=== PATIENT | female | born 1990 | race Caucasian/White ===

== ENCOUNTER 2017-12-31 10:06 | Emergency (ER) | payer MEDICAID ==
[~2017-12-31] VITALS: Ht 165.1 cm; Wt 84.5 kg
[~2017-12-31 10:06] MED LIST: AUGMENTIN 875-11 TAB PO; HYDROCODON-ACE1 EAC7 PO; IBUPROFEN600 MG PO; LEVAQUIN500 MG PO; PRENATAL COMPLE1 TAB PO
[2017-12-31 10:20] VITALS: Ht 165.1 cm; Wt 84.5 kg
[2017-12-31 11:42] LABS: BASOPHILS 0.2 % (0-2); EOSINOPHILS 2.1 % (0-7); HEMATOCRIT 40.6 % (36.0-48.0); HEMOGLOBIN 13.7 g/dL (12-16); IMMATURE GRANULOCYTES 0.1 % (0-5); MCH 31.7 pg (26.0-34.0); MCHC 33.7 g/dL (31.0-37.0); MEAN PLATELET VOLUME 10.4 fL (7.4-10.4); NEUTROPHILS 66.6 % (40-80); RBC 4.32 10x6/uL (4.00-5.40); RDW 14.2 % (11.5-14.5); WBC 8.7 10x3/uL (4.8-10.8)
[2017-12-31 11:47] LABS: HCG SERUM NEGATIVE (NEGATIVE)
[2017-12-31 11:52] LABS: ALBUMIN 3.5 g/dL (3.4-5.0); ALKALINE PHOSPHATASE 70 U/L (46-116); ALT (SGPT) 24 U/L (10-68); BILIRUBIN - TOTAL 0.58 mg/dL (0.2-1.3); CALC OSMOLALITY 276 mosm/kg (275-300); CARBON DIOXIDE 28.9 mmol/L (21.0-32.0); CHLORIDE - SERUM 103 mmol/L (98-107); CREATININE - SERUM 0.7 mg/dL (0.6-1.3); GLUCOSE 106 mg/dL (74-106); POTASSIUM - SERUM 4.5 mmol/L (3.5-5.1); PROTEIN - SERUM 7.8 g/dL (6.4-8.2); SODIUM 139 mmol/L (136-145); UREA NITROGEN 11 mg/dL (7-18); eGFR NON AFRICAN AMERICAN > 90 mL/min (90-120)
[2017-12-31 11:53] LABS: PLATELET COUNT 294 10x3/uL (130-400)
[2017-12-31 12:04] LABS: THYROID STIMULATING HORMONE 1.92 uIU/mL (0.36-3.74)
[2017-12-31 13:36] LABS: UDS - AMPHET POSITIVE QUAL (NEGATIVE); UDS - BARB NEGATIVE QUAL (NEGATIVE); UDS - BENZO NEGATIVE QUAL (NEGATIVE); UDS - COCAINE NEGATIVE QUAL (NEGATIVE); UDS - OPIATE NEGATIVE QUAL (NEGATIVE); UDS - PCP NEGATIVE QUAL (NEGATIVE); UDS - THC POSITIVE QUAL (NEGATIVE)
[2017-12-31 16:51] VITALS: BP 104/69
== END 2017-12-31 16:50 | disposition home or self-care (01) ==
LOC: D.ER 10:06
PROVIDERS: Family Medicine
DX: F15.10 Other stimulant abuse, uncomplicated (principal); I48.91 Unspecified atrial fibrillation; R07.0 Pain in throat; R10.13 Epigastric pain; R11.0 Nausea; F17.200 Nicotine dependence, unspecified, uncomplicated

== ENCOUNTER 2018-03-26 01:48 | Emergency (ER) | payer MEDICAID ==
[~2018-03-26] VITALS: Ht 165.1 cm; Wt 81.6 kg
[2018-03-26 02:37] VITALS: Ht 165.1 cm; Wt 81.6 kg
[2018-03-26 03:49] LABS: BASOPHILS 0.3 % (0-2); EOSINOPHILS 2.5 % (0-7); HEMATOCRIT 38.9 % (36.0-48.0); IMMATURE GRANULOCYTES 0.1 % (0-5); LYMPHOCYTES 36.3 % (15-50); MCH 31.5 pg (26.0-34.0); MCHC 33.4 g/dL (31.0-37.0); MCV 94.2 fL (80.0-100.0); MEAN PLATELET VOLUME 10.2 fL (7.4-10.4); MONOCYTES 6.3 % (2-11); NEUTROPHILS 54.5 % (40-80); RBC 4.13 10x6/uL (4.00-5.40); RDW 13.7 % (11.5-14.5); WBC 6.8 10x3/uL (4.8-10.8)
[2018-03-26 03:57] LABS: PLATELET COUNT 199 10x3/uL (130-400)
[2018-03-26 04:03] LABS: ALBUMIN 3.3 g/dL (3.4-5.0); ALKALINE PHOSPHATASE 75 U/L (46-116); ALT (SGPT) 20 U/L (10-68); BILIRUBIN - TOTAL 0.29 mg/dL (0.2-1.3); CALC OSMOLALITY 277 mosm/kg (275-300); CALCIUM 8.4 mg/dL (8.5-10.1); CARBON DIOXIDE 27.9 mmol/L (21.0-32.0); CHLORIDE - SERUM 104 mmol/L (98-107); CREATININE - SERUM 0.9 mg/dL (0.6-1.3); GLUCOSE 128 mg/dL (74-106); POTASSIUM - SERUM 3.9 mmol/L (3.5-5.1); PROTEIN - SERUM 7.6 g/dL (6.4-8.2); SODIUM 138 mmol/L (136-145); UREA NITROGEN 12 mg/dL (7-18); eGFR NON AFRICAN AMERICAN 79 mL/min (90-120)
[2018-03-26] MEDS ORDERED: BACTROBAN CREAM15 GM TOPICAL (04:28)
[2018-03-26] MEDS ORDERED: BACTRIM DS TABL1 TAB PO (04:28)
[2018-03-26 04:49] VITALS: BP 122/78
== END 2018-03-26 04:50 | disposition home or self-care (01) ==
LOC: D.ER 01:48
PROVIDERS: Family Medicine
DX: L01.00 Impetigo, unspecified (principal); Z22.322 Carrier or suspected carrier of Methicillin resistant Staphylococcus aureus; F17.200 Nicotine dependence, unspecified, uncomplicated

== ENCOUNTER 2020-11-16 11:48 | Inpatient (IN) | payer MEDICAID ==
[~2020-11-16] VITALS: Ht 165.1 cm; Wt 98.0 kg
[~2020-11-16 11:48] MED LIST changes: +BACTRIM DS TABL1 TAB PO; +BACTROBAN CREAM15 GM TOPICAL
[2020-11-16 12:48] LABS: BASOPHILS 0.3 % (0-2); EOSINOPHILS 2.9 % (0-7); IMMATURE GRANULOCYTES 0.3 % (0-5); LYMPHOCYTE ABS# 1.48 10x3/uL (1.18-3.74); LYMPHOCYTES 25.1 % (15-50); MCH 30.4 pg (26.0-34.0); MCHC 33.3 g/dL (31.0-37.0); MCV 91.1 fL (80.0-100.0); MEAN PLATELET VOLUME 10.4 fL (7.4-10.4); MONOCYTES 7.3 % (2-11); NEUTROPHIL ABS# 3.77 10x3/uL (1.56-6.13); NEUTROPHILS 64.1 % (40-80); PLATELET COUNT 315 10x3/uL (130-400); RBC 4.28 10x6/uL (4.00-5.40); RDW 13.6 % (11.5-14.5); WBC 5.9 10x3/uL (4.8-10.8)
[2020-11-16 12:59] VITALS: BP 138/88
[2020-11-16 13:00] LABS: CALC OSMOLALITY 270 mosm/kg (275-300); CALCIUM 9.2 mg/dL (8.5-10.1); CARBON DIOXIDE 27.6 mmol/L (21.0-32.0); CHLORIDE - SERUM 99 mmol/L (98-107); CREATININE - SERUM 0.7 mg/dL (0.6-1.3); GLUCOSE 117 mg/dL (74-106); POTASSIUM - SERUM 3.9 mmol/L (3.5-5.1); SODIUM 136 mmol/L (136-145); UREA NITROGEN 7 mg/dL (7-18); eGFR NON AFRICAN AMERICAN > 90 mL/min (90-120)
[2020-11-16 13:08] LABS: ALBUMIN 2.9 g/dL (3.4-5.0); ALKALINE PHOSPHATASE 395 U/L (30-120); ALT (SGPT) 187 U/L (10-68); AMYLASE - SERUM 50 U/L (25-115); BILIRUBIN - TOTAL 0.63 mg/dL (0.2-1.3); LIPASE 50 U/L (73-393); PROTEIN - SERUM 8.5 g/dL (6.4-8.2)
[2020-11-16 13:11] LABS: TROPONIN-I < 0.017 ng/mL (0.000-0.060)
[2020-11-16 13:50] LABS: BILIRUBIN NEGATIVE (NEGATIVE); KETONE NEGATIVE (NEGATIVE); NITRITE NEGATIVE (NEGATIVE); UROBILINOGEN NORMAL mg/dL (< 2)
[2020-11-16 13:54] LABS: WHITE CELLS - URINE 0-5 HPF (0-4)
[2020-11-16 13:55] LABS: AMORPHOUS SEDIMENT <1+ LPF (NONE SEEN); BACTERIA FEW HPF (NONE SEEN); SQUAMOUS EPITHELIAL 0-5 HPF (0-4)
[2020-11-16 13:57] LABS: HCG URINE NEGATIVE (NEGATIVE)
[2020-11-16 15:58] LABS: APTT 43.5 SECONDS (22.8-39.4); INR 1.09 (0.85-1.17); PROTIME 13.1 SECONDS (11.6-15.0)
--- NOTE | 2020-11-16 16:05 | NUR ---
ACTICIN 5% CREAM APPLIED TO AREAS OF RASH ON ARMS, TRUNK, BACK, AND THIGHS. REFUSED APPLICATION TO AREAS WITH NO RASH. C/O RUQ ABD PAIN 02/01.
--- NOTE | 2020-11-16 17:00 | NUR ---
CLEAR LIQUIDS GIVEN. STATES PAIN AT 3/10 NOW. NO NAUSEA.
--- NOTE | 2020-11-16 18:07 | NUR ---
ARRIVES TO UNIT PER STRETCHER
[2020-11-16 18:17] VITALS: BP 139/77; BMI 36.0
--- NOTE | 2020-11-16 19:00 | NUR ---
SPOKE WITH DR CRAVEN ABOUT PT REQUEST FOR ITCH MEDICATION AND TORADOL FOR PAIN, UPDATED DR ON PT SAYING THAT SHE WAS DX WITH SCABIES, HE HAD NO FURTHER ORDERS
[2020-11-16 20:21] VITALS: BP 136/81
--- NOTE | 2020-11-16 23:13 | NUR ---
I have reviewed this patient and I concur with the Shift Assessment completed by the Licensed Practical Nurse today this shift.
[2020-11-17 04:30] VITALS: BP 138/76
--- NOTE | 2020-11-17 07:50 | NUR ---
RESTING IN BED, NO DISTRESS NOTED, REMAINS IN ISOLATION, CONT TO MONITOR ABD PAIN AND NAUSEA
[2020-11-17 09:34] VITALS: BP 138/90
--- NOTE | 2020-11-17 10:08 | NUR ---
DR VALDES CKED RASH TO PT, WILL ORDER MEDS
[2020-11-17 13:37] VITALS: BP 125/64
[2020-11-17 17:41] VITALS: BP 114/74
[2020-11-17 20:00] VITALS: BP 124/87
[2020-11-18] VITALS (9 sets, daily range): BP systolic 91–142; BP diastolic 59–85; Ht 165.1 cm; Wt 98.0 kg
--- NOTE | 2020-11-18 05:32 | NUR ---
I have reviewed this patient and I concur with the Shift Assessment completed by the Licensed Practical Nurse today this shift.
[2020-11-18 14:35] LABS: BASOPHILS 0.1 % (0-2); EOSINOPHILS 0.1 % (0-7); HEMATOCRIT 35.7 % (36.0-48.0); HEMOGLOBIN 11.7 g/dL (12-16); IMMATURE GRANULOCYTES 0.3 % (0-5); LYMPHOCYTE ABS# 0.82 10x3/uL (1.18-3.74); LYMPHOCYTES 10.4 % (15-50); MCH 30.2 pg (26.0-34.0); MCHC 32.8 g/dL (31.0-37.0); MCV 92.2 fL (80.0-100.0); MEAN PLATELET VOLUME 10.2 fL (7.4-10.4); MONOCYTES 4.6 % (2-11); NEUTROPHIL ABS# 6.65 10x3/uL (1.56-6.13); NEUTROPHILS 84.5 % (40-80); PLATELET COUNT 301 10x3/uL (130-400); RBC 3.87 10x6/uL (4.00-5.40); RDW 13.5 % (11.5-14.5); WBC 7.9 10x3/uL (4.8-10.8)
[2020-11-18 14:53] LABS: ALBUMIN 2.5 g/dL (3.4-5.0); ALKALINE PHOSPHATASE 283 U/L (30-120); ALT (SGPT) 108 U/L (10-68); BILIRUBIN - TOTAL 0.29 mg/dL (0.2-1.3); CALC OSMOLALITY 274 mosm/kg (275-300); CALCIUM 8.8 mg/dL (8.5-10.1); CARBON DIOXIDE 24.2 mmol/L (21.0-32.0); CHLORIDE - SERUM 104 mmol/L (98-107); CREATININE - SERUM 0.8 mg/dL (0.6-1.3); GLUCOSE 141 mg/dL (74-106); POTASSIUM - SERUM 3.7 mmol/L (3.5-5.1); PROTEIN - SERUM 7.8 g/dL (6.4-8.2); SODIUM 137 mmol/L (136-145); UREA NITROGEN 10 mg/dL (7-18); eGFR NON AFRICAN AMERICAN 89 mL/min (90-120)
--- NOTE | 2020-11-18 22:56 | NUR ---
PT WAS SITTING UP IN THE BED AT THE TIME OF ASSESSMEMNT. PT WAS COMPLAINING OF PAIN TO ABDOMEN AREA. GIVEN PAIN MEDICATION AND WAS EFFECTIVE. ABLE TO MAKE WANTS AND NEEDS KNOWN CLEARLY. DRAIN WAS EMPTIED AT 50 CC. BED IN LOWEST POSITON WITH CALL LIGHT IN REACH.
[2020-11-19 04:00] VITALS: BP 111/61
[2020-11-19 06:40] LABS: BASOPHILS 0.1 % (0-2); EOSINOPHILS 0 % (0-7); HEMATOCRIT 33.5 % (36.0-48.0); HEMOGLOBIN 11.2 g/dL (12-16); IMMATURE GRANULOCYTES 0.3 % (0-5); LYMPHOCYTE ABS# 1.31 10x3/uL (1.18-3.74); LYMPHOCYTES 19.2 % (15-50); MCH 30.4 pg (26.0-34.0); MCHC 33.4 g/dL (31.0-37.0); NEUTROPHIL ABS# 5.07 10x3/uL (1.56-6.13); NEUTROPHILS 74.4 % (40-80); PLATELET COUNT 339 10x3/uL (130-400); RBC 3.68 10x6/uL (4.00-5.40); RDW 13.4 % (11.5-14.5); WBC 6.8 10x3/uL (4.8-10.8)
[2020-11-19 06:52] LABS: ALBUMIN 2.4 g/dL (3.4-5.0); ALKALINE PHOSPHATASE 233 U/L (30-120); ALT (SGPT) 103 U/L (10-68); BILIRUBIN - TOTAL 0.33 mg/dL (0.2-1.3); CALC OSMOLALITY 269 mosm/kg (275-300); CALCIUM 8.6 mg/dL (8.5-10.1); CHLORIDE - SERUM 104 mmol/L (98-107); CREATININE - SERUM 0.8 mg/dL (0.6-1.3); GLUCOSE 141 mg/dL (74-106); PROTEIN - SERUM 7.5 g/dL (6.4-8.2); SODIUM 135 mmol/L (136-145); UREA NITROGEN 6 mg/dL (7-18); eGFR NON AFRICAN AMERICAN 89 mL/min (90-120)
[2020-11-19 09:37] VITALS: BP 138/91
[2020-11-19 12:04] VITALS: BP 117/60
[2020-11-19] MEDS ORDERED: TYLENOL W/CODEI1 TAB PO (12:16)
[2020-11-19] MEDS ORDERED: LEVOFLOXACIN500 MG PO (12:17)
--- NOTE | 2020-11-19 12:30 | NUR ---
1145 - RE DRAIN REMOVED PER MD ORDER. PT TOLERATED PROCEDURE WELL. PRESSURE DRESSING APPLIED WITH GAUZE AND FOAM TAPE.
[2020-11-19] MEDS ORDERED: PEPCID40 MG PO (13:28)
[2020-11-19] MEDS ORDERED: MEDROL DOSE PACK4 MG PO (13:28)
== END 2020-11-19 13:50 | disposition home or self-care (01) | DRG 419 ==
LOC: D.ER 11:48 → D.MS 15:24 → OBSVTIME 15:24 → D.MS 11-17 17:12
PROVIDERS: Family Medicine; Surgery; ADMIT Surgery; ATTEND Surgery
PROC: 0W9F40Z Drainage of Abdominal Wall with Drainage Device, Percutaneous Endoscopic Approach (ICD-10-PCS; 2020-11-18)
PROC: 0FT44ZZ Resection of Gallbladder, Percutaneous Endoscopic Approach (ICD-10-PCS; principal; 2020-11-18 09:00)
DX: K81.0 Acute cholecystitis (principal); R21 Rash and other nonspecific skin eruption; Z72.0 Tobacco use; E66.01 Morbid (severe) obesity due to excess calories; R74.8 Abnormal levels of other serum enzymes; Z68.36 Body mass index [BMI] 36.0-36.9, adult